=== PATIENT | male | born 1975 | race Caucasian/White ===

== ENCOUNTER 2023-07-08 07:46 | Outpatient (CLI) | payer OTHER | END 2023-07-08 07:47 | disposition home or self-care (01) | LOC: CSHCT 07:46 | PROVIDERS: ATTEND Otolaryngology Plastic Surgery within the Head & Neck | DX: R22.0 Localized swelling, mass and lump, head (principal); R25.2 Cramp and spasm | CPT/HCPCS: 70491 ==